=== PATIENT | male | born 1980 | race Caucasian/White ===

== ENCOUNTER 2016-09-30 17:53 | Emergency (ER) | payer OTHER ==
--- NOTE | 2016-09-30 18:14 | PDOC ---
Rapid Medical Evaluation Chief Complaint: Back Pain Time Seen by Provider: 09/30/16 18:11 Medical Evaluation: I have performed a brief in-person evaluation of this patient. The patient presents with a chief complaint of: 36 yo M history nephrolithiasis presents with L flank pain for past 3 days. Pertinent physical exam findings: Well-appearing, comfortable. Abd soft nontender. No CVAT I have ordered the following: UA The patient will proceed to the ED for further evaluation.
[2016-09-30 18:16] VITALS: BP 147/90; PULSE 93; TEMP 98.8; BMI 30.9
[2016-09-30 18:51] LABS: URINE APPEARANCE CLEAR; URINE BILIRUBIN NEGATIVE (NEGATIVE); URINE BLOOD NEGATIVE (NEGATIVE); URINE COLOR LTYELLOW; URINE GLUCOSE (UA) NEGATIVE (NEGATIVE); URINE KETONE NEGATIVE (NEGATIVE); URINE LEUK ESTERASE NEGATIVE (NEGATIVE); URINE NITRITE NEGATIVE (NEGATIVE); URINE PROTEIN NEGATIVE (NEGATIVE); URINE UROBILINOGEN 2.0 E.U/dl E.U./dl (0.2-1.0)
--- NOTE | 2016-09-30 19:02 | PDOC ---
History of Present Illness - General Chief Complaint: Back Pain Stated Complaint: BACK PAIN Time Seen by Provider: 09/30/16 18:11 History Source: Patient Exam Limitations: No Limitations - History of Present Illness Initial Comments: 09/30/16 19:30 With application counselor telephone/language line, patient came to emergency department for evaluation of intermittent back pain. States is mild, has some intermittent radiation to the left in the umbilical area with some burning but is resolved and has not experienced this pain today. Denies fever, nausea vomiting diarrhea or constipation. States bowels are working normally. Denies any burning or bleeding from urination or pain with void. Patient has history of kidney stone with some surgical procedure 4 years ago not in this country. Denies same kind of pain or flank pain as he experienced with kidney stone. 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 Patient has no physician, has not been in this country a very long, and was uncertain as to who to be seen, as performed no treatments for relief of pain. Patient states is minimal presently Occurred: reports: last week Severity: reports: mild Pain Location: reports: back Method of Injury: Yes: unknown Modifying Factors: improves with: None Associated Symptoms (Fall): denies symptoms Past History - Travel Traveled outside of the country in the last 30 days: No Close contact w/someone who was outside of country & ill: No - Past Medical History Allergies/Adverse Reactions: Allergies Allergy/AdvReac Type Severity Reaction Status Date / Time aspirin Allergy Verified 09/30/16 18:06 Other medical history: denies - Psycho/Social/Smoking Cessation Hx Suicidal Ideation: No Smoking History: Never smoked Trauma Specific PMHX - Complaint Specific PMHX Back Injury: No Neck Injury: No Review of Systems - Review of Systems Able to Perform ROS?: Yes Is the patient limited Nepalese proficient: Yes Constitutional: Yes: See HPI. No: Symptoms Reported, Fever, Loss of Appetite, Malaise HEENTM: Yes: See HPI. No: Symptoms Reported Respiratory: Yes: See HPI. No: Symptoms reported, Cough ABD/GI: Yes: Symptoms Reported. No: See HPI Musculoskeletal: Yes: Symptoms Reported, See HPI, Muscle Pain Integumentary: No: Symptoms Reported Neurological: Yes: Symptoms reported. No: See HPI All Other Systems: Reviewed and Negative *Physical Exam - Vital Signs Last Vital Signs Temp Pulse Resp BP Pulse Ox 98.8 F 93 H 14 147/90 99 09/30/16 18:07 09/30/16 18:07 09/30/16 18:07 09/30/16 18:07 09/30/16 18:07 - Physical Exam General Appearance: Yes: Appropriately Dressed. No: Apparent Distress HEENT: positive: AGATHA, Normal ENT Inspection, TMs Normal, Pharynx Normal Neck: positive: Supple. negative: Lymphadenopathy (R), Lymphadenopathy (L) Respiratory/Chest: positive: Lungs Clear, Normal Breath Sounds Gastrointestinal/Abdominal: positive: Soft Musculoskeletal: positive: Normal Inspection. negative: CVA Tenderness, Muscle Spasm, Vertebral Tenderness Extremity: positive: Normal Capillary Refill Integumentary: positive: Normal Color Neurologic: positive: recovery room nurse II-XII NML intact, Fully Oriented, Alert, Normal Mood/ Affect, Normal Response, Motor Strength / ED Treatment Course - ADDITIONAL ORDERS Additional order review: Laboratory Results 09/30/16 18:45 Urine Color Ltyellow Urine Appearance Clear Urine pH 6.0 Ur Specific Bradley 1.026 Urine Protein Negative Urine Glucose (UA) Negative Urine Ketones Negative Urine Blood Negative Urine Nitrite Negative Urine Bilirubin Negative Urine Urobilinogen 2.0 e.u/dl Ur Leukocyte Esterase Negative Progress Note - Progress Note Progress Note: Patient with mild low back pain, no clinical evidence of significant pathology. Urinalysis does not reveal any blood or abnormalities therefore we will treat for mild back strain with Tylenol as patient has aspirin ALLERGY. And have follow-up with [facility] for further evaluation as needed *DC/Admit/Observation/Transfer Diagnosis at time of Disposition: Low back strain Qualifiers: Encounter type: initial encounter Qualified Code(s): S39.012A - Strain of muscle, fascia and tendon of lower back, initial encounter - Discharge Dispostion Disposition: HOME Condition at time of disposition: Stable Admit: No - Referrals Referrals: [facility] [Provider Group] - Patient Instructions Printed Discharge Instructions: DI for Back Strain or Sprain Additional Instructions: Rest, no heavy lifting or exercise until pain is resolved Hot soaks to neck and low back as often as possible/hot showers or Jacuzzis No massage or therapy until spasm is gone Continue Tylenol 23 25 mg tablets every 6 hours for the next 3 days then as needed for pain and swelling If not significant improvement within 24 hours with medication and rest regime, followup with private physician for change in medications and /or therapy. - Post Discharge Activity Work/School Note: Back to Work
[2016-09-30] MEDS ORDERED: ACETAMINOPHEN 500 MG TABLET (FP) PO ONE (19:30)
[2016-09-30] MEDS ORDERED: ACETAMINOPHEN 500 MG TABLET (FP) ONE (19:36)
== END 2016-09-30 20:01 | disposition home or self-care (01) ==
LOC: JERFT 17:53
DX: S39.012A Strain of muscle, fascia and tendon of lower back, initial encounter (principal); X58.XXXA Exposure to other specified factors, initial encounter; Y93.9 Activity, unspecified; Y92.89 Other specified places as the place of occurrence of the external cause
CPT/HCPCS: 81003; 99281-25